=== PATIENT | male | born 1995 | race Two or more races ===

== ENCOUNTER 2019-02-13 17:03 | Emergency (ER) | payer OTHER ==
[~2019-02-13] VITALS: Ht 160 cm; Wt 68.0 kg
[2019-02-13] MEDS ORDERED: DIVA500T3 PO (17:12)
[2019-02-13 22:30] VITALS: BP 120/58
[2019-02-13] MEDS ORDERED: SODIUM CHLORIDE 0.9% 1,000 ML IV ONE (22:35)
[2019-02-13 23:18] LABS: CHLORIDE 104 mEq/L (98-107)
[2019-02-13 23:19] LABS: BASOPHILS % 0.7 % (0.0-2.0); EOSINOPHILS % 1.6 % (0.0-5.0); HEMATOCRIT. 40.3 % (42.0-52.0); HEMOGLOBIN. 13.7 g/dL (14.0-18.0); LYMPHOCYTES % 30.9 % (20.0-50.0); MEAN CORPUSCULAR HEMOGLOBIN 26.3 pg (28.0-32.0); MEAN CORPUSCULAR VOLUME 77.5 fL (80.0-94.0); MEAN PLATELET VOLUME 7.4 fl (7.4-10.4); MONOCYTES % 9.4 % (2.0-8.0); NEUTROPHILS % 57.4 % (40.0-76.0); PLATELET 253 x1000/uL (130-400); RED CELL DISTRIBUTION WIDTH 13.6 % (11.6-14.6)
[2019-02-13 23:21] LABS: ETHANOL BLOOD < 10 mg/dL
[2019-02-13 23:31] LABS: CLARITY URINE CLEAR (CLEAR); COLOR URINE YELLOW (YELLOW); KETONES URINE 1+ (NEGATIVE); LEUKOCYTE ESTERASE URINE NEGATIVE (NEGATIVE); NITRITE URINE NEGATIVE (NEGATIVE); OCCULT BLOOD URINE NEGATIVE (NEGATIVE); PH URINE 6.5 (4.5-8.0); PROTEIN URINE NEGATIVE (NEGATIVE); SPECIFIC GRAVITY URINE 1.018 (1.005-1.030); UROBILINOGEN URINE 0.2 E.U./dL (0.2-1.0)
[2019-02-13 23:45] LABS: *BARBITURATES SCREEN URINE NEGATIVE (NEGATIVE)
[2019-02-13 23:46] LABS: *AMPHETAMINES SCREEN URINE NEGATIVE (NEGATIVE); *BENZODIAZEPINES SCREEN URINE NEGATIVE (NEGATIVE); *COCAINE SCREEN URINE NEGATIVE (NEGATIVE); CANNABINOID URINE SCREEN NEGATIVE (NEGATIVE); METHADONE URINE SCREEN NEGATIVE (NEGATIVE); OPIATES URINE SCREEN NEGATIVE (NEGATIVE); PHENCYCLIDINE URINE SCREEN NEGATIVE (NEGATIVE)
[2019-02-14] MEDS ORDERED: DIVALPROEX SODIUM 250MG ER TABLET PO SCH (01:00)
== END 2019-02-14 01:44 | disposition home or self-care (01) ==
LOC: ER 17:03
DX: S09.90XA Unspecified injury of head, initial encounter (principal); R56.9 Unspecified convulsions; W18.39XA Other fall on same level, initial encounter; Y93.89 Activity, other specified; Y92.89 Other specified places as the place of occurrence of the external cause; Y99.8 Other external cause status; Z90.89 Acquired absence of other organs
CPT/HCPCS: 36415; 70450; 80053; 80305; 80320; 81003; 85025; 99284; J7030; Z7610; G0480